=== PATIENT | male | born 1995 | race Hispanic/Latino ===

== ENCOUNTER 2017-05-16 11:40 | Inpatient (IN) | payer OTHER ==
[2017-05-16] MEDS ORDERED: Sodium Chloride 0.9% 1,000 ML IV STA ×3 (12:08→15:30)
--- NOTE | 2017-05-16 12:44 | ED PDOC ---
Syncope/Near Syncope/Dizziness Time Seen by Provider: 05/16/17 11:48 Chief Complaint (Provider): Syncope History Per: Patient History/Exam Limitations: no limitations Onset/Duration Of Symptoms: Hrs Current Symptoms Are (Timing): Still Present Activity At Onset Of Symptoms: Exertional Activity (running) Additional Complaint(s): Warren Khan is a 21 year old male that presents to the ED with a chief complaint of syncope after he ran 12.5 miles of his half marathon. Patient reports that he runs regularly, and that this past week he completed 11 miles without difficulty, but that he typically runs in the evenings, when it is chilly, as opposed to in the humidity of today's weather. Patient states that he lost consciousness, and that the last thing he remembered was seeing his brother running alongside him, and once he came to he was inside the EMS truck. He denies any nausea, vomiting, diarrhea, fever, chills, incontinence, or biting of tongue. Of Note: EMS reports that when they first took patient's blood pressure it was 69/34, but after three bags of IV fluids it is 122/44, and heart rate is around 120 BPM. Past Medical History Reviewed: Historical Data, Nursing Documentation, Vital Signs Vital Signs: Last Vital Signs Temp 97.9 F 05/16/17 11:43 Pulse 112 H 05/16/17 11:43 Resp 18 05/16/17 11:43 BP 104/54 L 05/16/17 11:43 Pulse Ox 97 05/16/17 11:43 - Medical History PMH: No Chronic Diseases - Family History Family History: States: Hypertension - Social History Current smoker - smoking cessation education provided: No Alcohol: Social - Allergies Allergies/Adverse Reactions: Allergies Allergy/AdvReac Type Severity Reaction Status Date / Time No Known Allergies Allergy Verified 05/16/17 12:07 Review of Systems Constitutional: Negative for: Fever, Chills Gastrointestinal: Negative for: Nausea, Vomiting, Diarrhea Genitourinary Male: Negative for: Incontinence Neurological: Positive for: Other (syncope) Physical Exam - Reviewed Nursing Documentation Reviewed: Yes Vital Signs Reviewed: Yes - Physical Exam Appears: Positive for: Non-toxic, No Acute Distress Head Exam: Positive for: ATRAUMATIC, NORMOCEPHALIC Skin: Positive for: Normal Color, Warm Eye Exam: Positive for: Normal appearance, EOMI, PERRL Cardiovascular/Chest: Positive for: Regular Rate, Rhythm (110 BPM). Negative for: Murmur Respiratory: Positive for: Normal Breath Sounds. Negative for: Wheezing Gastrointestinal/Abdominal: Positive for: Normal Exam, Soft. Negative for: Tenderness Extremity: Positive for: Normal ROM. Negative for: Tenderness, Swelling Neurologic/Psych: Positive for: Alert, textbook associate II-XII, Oriented. Negative for: Motor/Sensory Deficits, Aphasia, Facial Droop - Laboratory Results Result Diagrams: 05/16/17 14:21 05/16/17 14:21 - ECG O2 Sat by Pulse Oximetry: 97 (RA) Pulse Ox Interpretation: Normal Medical Decision Making Medical Decision Making: Impression: Syncope s/p physical exertion Plan: * EKG * CMP * CBC * Urine Drug Screen * Urine Dip * NaCl 1000 mLs at 1000 mLs/hr * Reevaluation 15:00 Patient signed out to Dr. Shayne Robert pending bloodwork and reevaluation. Scribe Attestation: Documented by Snehal Day, acting as a scribe for Pauline Robbins MD. Provider Scribe Attestation: All medical record entries made by the Scribe were at my direction and personally dictated by me. I have reviewed the chart and agree that the record accurately reflects my personal performance of the history, physical exam, medical decision making, and the department course for this patient. I have also personally directed, reviewed, and agree with the discharge instructions and disposition. Disposition - Clinical Impression Clinical Impression: Syncope - Patient ED Disposition Is Patient to be Admitted: Transfer of Care - Disposition Disposition Time: 15:00 Condition: IMPROVED Patient Signed Over To: Shayne Robert III
[2017-05-16 14:27] LABS: BASO % 0.1 % (0.0-2.0); HEMATOCRIT 44.3 % (35.0-51.0); LYMPH % 4.5 % (20.0-40.0); MEAN CELL VOLUME 87.9 fl (80.0-94.0); MEAN CORPUSCULAR HEMOGLOBIN 29.8 pg (27.0-31.0); MEAN CORPUSCULAR HGB CONC 33.9 g/dL (33.0-37.0); MEAN PLATELET VOLUME 9.3 fl (7.2-11.7); MONO # 1.7 K/uL (0.0-0.8); NEUT # 18.6 K/uL (1.8-7.0); NEUT % 87.4 % (50.0-75.0); RED CELL DISTRIBUTION WIDTH 13.1 % (11.5-14.5); WHITE BLOOD COUNT 21.3 K/uL (4.8-10.8)
[2017-05-16 14:41] LABS: CALCIUM 9.9 mg/dL (8.4-10.2); POTASSIUM 4.2 MMOL/L (3.6-5.0)
--- NOTE | 2017-05-16 15:07 | ED PDOC ---
- Laboratory Results Result Diagrams: 05/16/17 14:21 05/16/17 14:21 - ECG ECG: Positive for: Interpreted By Me ECG Rhythm: Positive for: ST/T Changes Rate: 86 O2 Sat by Pulse Oximetry: 97 (RA) Pulse Ox Interpretation: Normal - Radiology X-Ray: Interpreted by Me X-Ray Interpretation: No Acute Disease Medical Decision Making Medical Decision Makin:00 Patient signed over to me by Dr. Pauline Robbins MD pending bloodwork and reevaluation. Pt c/o continuing leg pain, denied chest pain or SOB. UDip reveals TR blood lysed, thus CK added on. Trop returned elevated 0.8 CK 392 (d/w lab- reran and confirmed) EKG repeated 1528 reveals evolution of T waves now hyperacute 445p Dr Emerson cardio air and hydronic balancing technician paged, recommended ASA/ lovenox, BBlocker, consult interventional 5pm Dr Poole air and hydronic balancing technician cardio contacted, EKGs transmitted and he stated not a code heart candidate. 530pm Dr Mckeon air and hydronic balancing technician medicine contacted and case discussed. Requested ICU consult. 540pm Dr Epstein contacted intensive care, will monitor in ICU overnight given EKG changes and elevated trop 6pm Dr Epstein in ED, care transferred. All results d/w patient and mother. Scribe Attestation: Documented by Snehal Day, acting as a scribe for Shayne Robert III, DO. Provider Scribe Attestation: All medical record entries made by the Scribe were at my direction and personally dictated by me. I have reviewed the chart and agree that the record accurately reflects my personal performance of the history, physical exam, medical decision making, and the department course for this patient. I have also personally directed, reviewed, and agree with the discharge instructions and disposition. Disposition Counseled Patient/Family Regarding: Studies Performed, Diagnosis, Need For Followup - Clinical Impression Clinical Impression: Syncope, Acute electrocardiogram changes, NSTEMI (non-ST elevated myocardial infarction), Rhabdomyolysis - POA Present On Arrival: None - Disposition Disposition: Admitted as In-Patient Disposition Time: 14:45 Condition: FAIR
[2017-05-16] MEDS: Lactated Ringer's 1,000 ML IV SCH ×2 (16:13→16:19)
[2017-05-16 16:40] LABS: TROPONIN I 0.804 ng/mL (0.00-0.120)
[2017-05-16] MEDS ORDERED: Enoxaparin 80 mg Syringe SC STA (17:30)
--- NOTE | 2017-05-16 18:41 | CP.CCUPN ---
CCU Subjective - Physician Review Events Since Last Encounter (Free Text): 05/16/17 19:12 The patient was Seen/interviewed and examined by me at the bedside during ICU round, Medical records reviewed and Management issues were discussed and formulated with the house staff. Mr. Khan is a 21 Years old Male with no significant PMHx Who presents to the Emergency department with a chief complaint of syncope after he ran about 12 miles of his half marathon. Patient states that he runs regularly, and that this past week he completed 11 miles without difficulty EMS reports that when they first took patient's blood pressure it was 69/34 in the field, and HR in 160s, Pt AAO x3. Patient denies any similar episodes In the ER he intially boarderline hypotensive, and Tachcardiac, but after 3L of IV fluids BP 122/44, and heart rate 80s Labs NL, except Trop 0.84 and hyperacute T waves on EKG Cardiology consult, , recommended ASA/ lovenox, BBlocker interventional consulted also, recommended no intevention Pt received Lovenos and BB. Pt denied chest pain or SOB, only c/o continuing leg pain. Awake, comfortable, NAD CCU Objective - Vital Signs / Intake & Output Vital Signs (Last 4 hours): Vital Signs Temp Pulse Resp BP Pulse Ox 05/16/17 18:18 97.6 F 80 18 122/54 L 100 05/16/17 18:16 86 97 - Physical Exam Head: Positive for: Atraumatic, Normocephalic. Negative for: Tenderness, Contusion, Swelling, Ecchymosis Pupils: Positive for: PERRL. Negative for: Sluggish, Non-Reactive Extroacular Muscles: Positive for: EOMI Conjunctiva: Positive for: Normal. Negative for: Injected, Icteric Ears: Positive for: Normal Mouth: Positive for: Moist Mucous Membranes Pharnyx: Positive for: Normal Nose (External): Positive for: Atraumatic Nose (Internal): Positive for: Normal Inspection Neck: Negative for: Normal Range of Motion, Meningeal Signs, MIDLINE TENDERNESS , Paraspinal Tenderness, JVD, Lymphadenopathy, Bruit, Trachea Midline, Other Respiratory/Chest: Positive for: Clear to Auscultation, Good Air Exchange. Negative for: Respiratory Distress, Accessory Muscle Use, Wheezes, Rhonchi Cardiovascular: Positive for: Regular Rate and Rhythm, Normal S1, S2, Peripheal Pulses Present. Negative for: Murmurs, Irregular Rhythm, Tachycardic, Bradycardic Abdomen: Positive for: Normal Bowel Sounds. Negative for: Tenderness, Distention, Peritoneal Signs, Rebound, Guarding Upper Extremity: Positive for: Normal Inspection, Normal ROM, NORMAL PULSES, Capillary Refill < 2s. Negative for: Cyanosis, Edema, Tenderness, Swelling, Erythema Lower Extremity: Positive for: Normal Inspection, NORMAL PULSES, Capillary Refill < 2 s. Negative for: Edema, CALF TENDERNESS Neurological: Positive for: GCS=15, CN II-XII Intact, Speech Normal, Motor Func Grossly Intact, Normal Sensory Function Psychiatric: Positive for: Alert, Oriented x 3, Normal Insight, Normal Concentration - Medications Active Medications: Active Medications Generic Name Dose Route Start Last Admin Trade Name Freq PRN Reason Stop Dose Admin Lactated Ringer's 1,000 mls @ 1,000 mls/hr 05/16/17 15:15 05/16/17 16:19 Lactated Ringer's IV 1,000 mls/hr .Q1H KATI Administration Dextrose/Sodium Chloride 1,000 mls @ 150 mls/hr 05/16/17 18:00 Dextrose 5%/0.45% Ns 1000 Ml IV 05/17/17 17:51 .Q6H40M KATI Review of Systems - Constitutional Constitutional: UN - Respiratory Respiratory: absent: As Per HPI, Cough, Dyspnea, Hemoptysis, Dyspnea on Exertion , Wheezing, Snoring, Stridor, Pain on Inspiration, Chest Congestion, Excessive Mucous Production, Change in Mucous Color, Pain with Coughing, Other, UNREMARKABLE - Gastrointestinal Gastrointestinal: absent: As Per HPI, Abdominal Pain, Belching, Bloating, Change in Bowel Habits, Change in Stool Character, Coffee Ground Emesis, Constipation, Cramping, Diarrhea, Dyspepsia, Dysphagia, Early Satiety, Excessive Flatus, Fecal Incontinence, Heartburn, Hematemesis, Hematochezia, Loose Stools, Melena, Nausea, Odynophagia, Temesmus, Vomiting, Other, UNREMARKABLE - Musculoskeletal Musculoskeletal: Arthralgias, Muscle Cramps, Muscle Weakness, Myalgias. absent : Abnormal Gait, Atrophy, Back Pain, Joint Swelling, Limited Range of Motion, Radiating Pain into Limb Critical Care Progress Note - Extremities/Vascular Does the Patient have a Central Venous Catheter?: No Does the Patient need a Central Venous Catheter?: No Does the Patient have a Camacho Catheter?: No Does the Patient need a Camacho Catheter?: No Assessment/Plan (1) Acute electrocardiogram changes Current Visit: Yes Status: Acute (2) NSTEMI (non-ST elevated myocardial infarction) Current Visit: Yes Status: Acute (3) Rhabdomyolysis Current Visit: Yes Status: Acute (4) Syncope Current Visit: Yes Status: Acute - Assessment and Plan (Free Text) Assessment: ASSESEMENT AND PLAN Admit to ICU for Cardiac and hemodynamic monitoring. Cardiology consult, recommended ASA/ lovenox, BBlocker Interventional consulted also, recommended no intervention At this time Neuro check Seial EKG, TROP Trend CPK level ECHO Suplemental Oxygen IV Hydration with D5 1/2NS @ 150 ml/hr Monitor urine output, Strict I&O Monitor Renal function Pain control with Tylenol PRN OOB chair, fall precautions, aspiration precaution GI/DVT PPX The need for further cardiac work up will be assessed based on further TROP/ECG/ ECHO and crdiac/slinical progress
[2017-05-16] MEDS: Dextrose 5%/0.45% NS 1,000 ML IV SCH (18:46)
--- NOTE | 2017-05-16 20:04 | CP.PCM.PCO ---
Physician Communication Note - Physician Communication Note Physician Communication Note: Because BP is 108/53mmHg I will hold the Lopressor tonight.
[2017-05-16 20:30] LABS: BLOOD UREA NITROGEN 21 mg/dl (9-20); CALCIUM 9.4 mg/dL (8.4-10.2); CARBON DIOXIDE 23 mmol/L (22-30); CHLORIDE 106 mmol/L (98-107); GFR AFRICAN-AMERICAN > 60; GLUCOSE,RANDOM 109 mg/dL (75-110); POTASSIUM 4.1 MMOL/L (3.6-5.0); SODIUM 139 mmol/l (132-148)
[2017-05-17] MEDS: Dextrose 5%/0.45% NS 1,000 ML IV SCH ×2 (01:13→08:33)
[2017-05-17 05:18] LABS: BASO # 0.1 K/uL (0.0-0.2); BASO % 0.5 % (0.0-2.0); EOS # 0.1 K/uL (0.0-0.7); EOS % 1.1 % (0.0-4.0); HEMATOCRIT 39.2 % (35.0-51.0); LYMPH # 3.8 K/uL (1.0-4.3); LYMPH % 35.4 % (20.0-40.0); MEAN CELL VOLUME 88.3 fl (80.0-94.0); MEAN CORPUSCULAR HEMOGLOBIN 29.8 pg (27.0-31.0); MEAN CORPUSCULAR HGB CONC 33.7 g/dL (33.0-37.0); MEAN PLATELET VOLUME 9.2 fl (7.2-11.7); MONO % 9.7 % (0.0-10.0); NEUT # 5.7 K/uL (1.8-7.0); NEUT % 53.3 % (50.0-75.0); NRBC % 0.1 % (0.0-0.0); RED CELL DISTRIBUTION WIDTH 13.2 % (11.5-14.5); WHITE BLOOD COUNT 10.6 K/uL (4.8-10.8)
[2017-05-17 05:28] LABS: ALB/GLOB RATIO 1.4 (1.0-2.1); ALKALINE PHOSPHATASE 32 U/L (38-126); ALT/SGPT 35 U/L (21-72); AST/SGOT 57 U/L (17-59); BILIRUBIN,TOTAL 1.4 mg/dl (0.2-1.3); BLOOD UREA NITROGEN 22 mg/dl (9-20); CARBON DIOXIDE 24 mmol/L (22-30); CHLORIDE 106 mmol/L (98-107); GFR AFRICAN-AMERICAN > 60; GLUCOSE,RANDOM 93 mg/dL (75-110); POTASSIUM 3.5 MMOL/L (3.6-5.0); SODIUM 138 mmol/l (132-148)
--- NOTE | 2017-05-17 07:26 | CP.CCUPN ---
CCU Subjective - Physician Review Events Since Last Encounter (Free Text): 05/17/17 The patient was Seen/interviewed and examined by me at the bedside during ICU round, Medical records reviewed and Management issues were discussed and formulated with the house staff. This morning he feels well and is hemodynamically stable, denies any chest pain or SOB, No Fever/chills or leg pain. Awake, comfortable, NAD Afebrile, BP NL, HR sinus heladio Labs reviewed, hyperacute T waves on EKG Trop trending down 1.22-->0.83-->0.56 ECHO done, results essentially negative Head CT scan ordered for syncope work up but family declined We reviewed the rationale, risks, and alternatives to treatment with the patient and his family, they was given the opportunity to ask many questions which were answered to his satisfaction, they all agrees with our recommendations that cardiac work up is indicated, they reluctant to go for Cardiac Cath to further evaluate due to the Abnormal EKG and elevated Trop on admission. Mother discussed with primary cardiology at [facility] Dr Jc Benitez [phone], he advised to have either Cardiac MRI or Coronory CTA both modality are unavoidable, As per family reqest patient will be transferred to [facility], the transfer center was contacted at [phone], he was accepted for transfer , will be admitted there under Dr Benitez, Pt's current status and treatment plans is discussed with pt / pt's family CCU Objective - Vital Signs / Intake & Output Vital Signs (Last 4 hours): Vital Signs Temp Pulse Resp BP Pulse Ox 05/17/17 06:00 46 L 11 L 111/68 99 05/17/17 04:00 98.5 F 59 L 13 113/66 100 Intake and Output (Last 8hrs): Intake & Output 05/16/17 05/17/17 05/17/17 22:59 06:59 14:59 Intake Total 1770 Output Total 1400 Balance 370 Intake: IV 1650 Oral 120 Output: Urine 1400 Urine, Voided 1400 Other: # Voids Urine, Voided 3 - Physical Exam Head: Positive for: Atraumatic, Normocephalic. Negative for: Tenderness, Contusion, Swelling, Ecchymosis Pupils: Positive for: PERRL. Negative for: Sluggish, Non-Reactive Extroacular Muscles: Positive for: EOMI Conjunctiva: Positive for: Normal. Negative for: Injected, Icteric Ears: Positive for: Normal Mouth: Positive for: Moist Mucous Membranes Pharnyx: Positive for: Normal Nose (External): Positive for: Atraumatic Nose (Internal): Positive for: Normal Inspection Neck: Negative for: Normal Range of Motion, Meningeal Signs, MIDLINE TENDERNESS , Paraspinal Tenderness, JVD, Lymphadenopathy, Bruit, Trachea Midline, Other Respiratory/Chest: Positive for: Clear to Auscultation, Good Air Exchange. Negative for: Respiratory Distress, Accessory Muscle Use, Wheezes, Rhonchi Cardiovascular: Positive for: Regular Rate and Rhythm, Normal S1, S2, Peripheal Pulses Present. Negative for: Murmurs, Irregular Rhythm, Tachycardic, Bradycardic Abdomen: Positive for: Normal Bowel Sounds. Negative for: Tenderness, Distention, Peritoneal Signs, Rebound, Guarding Upper Extremity: Positive for: Normal Inspection, Normal ROM, NORMAL PULSES, Capillary Refill < 2s. Negative for: Cyanosis, Edema, Tenderness, Swelling, Erythema Lower Extremity: Positive for: Normal Inspection, NORMAL PULSES, Capillary Refill < 2 s. Negative for: Edema, CALF TENDERNESS Neurological: Positive for: GCS=15, CN II-XII Intact, Speech Normal, Motor Func Grossly Intact, Normal Sensory Function Psychiatric: Positive for: Alert, Oriented x 3, Normal Insight, Normal Concentration - Medications Active Medications: Active Medications Generic Name Dose Route Start Last Admin Trade Name Freq PRN Reason Stop Dose Admin Aspirin 81 mg 05/17/17 09:00 Aspirin Chewable PO DAILY COUNTS INCLUDE 234 BEDS AT THE [facility] Atorvastatin Calcium 20 mg 05/17/17 09:00 Lipitor PO DAILY KATI Lactated Ringer's 1,000 mls @ 1,000 mls/hr 05/16/17 15:15 05/16/17 16:19 Lactated Ringer's IV 1,000 mls/hr .Q1H KATI Administration Dextrose/Sodium Chloride 1,000 mls @ 150 mls/hr 05/16/17 18:00 05/17/17 01:13 Dextrose 5%/0.45% Ns 1000 Ml IV 05/17/17 17:51 150 mls/hr .Q6H40M KATI Administration Metoprolol Tartrate 12.5 mg 05/17/17 21:00 Lopressor PO Q12 KATI - Patient Studies Lab Studies: Lab Studies 05/17/17 05/17/17 05/16/17 Range/Units 05:15 05:15 20:13 WBC 10.6 D (4.8-10.8) K/uL RBC 4.44 (4.40-5.90) Mil/uL Hgb 13.2 (12.0-18.0) g/dL Hct 39.2 (35.0-51.0) % MCV 88.3 (80.0-94.0) fl MCH 29.8 (27.0-31.0) pg MCHC 33.7 (33.0-37.0) g/dL RDW 13.2 (11.5-14.5) % Plt Count 148 (130-400) K/uL MPV 9.2 (7.2-11.7) fl Neut % (Auto) 53.3 (50.0-75.0) % Lymph % (Auto) 35.4 (20.0-40.0) % Bond % (Auto) 9.7 (0.0-10.0) % Eos % (Auto) 1.1 (0.0-4.0) % Baso % (Auto) 0.5 (0.0-2.0) % Neut # 5.7 (1.8-7.0) K/uL Lymph # 3.8 (1.0-4.3) K/uL Bond # 1.0 H (0.0-0.8) K/uL Eos # 0.1 (0.0-0.7) K/uL Baso # 0.1 (0.0-0.2) K/uL Sodium 138 139 (132-148) mmol/l Potassium 3.5 L 4.1 (3.6-5.0) MMOL/L Chloride 106 106 (98-107) mmol/L Carbon Dioxide 24 23 (22-30) mmol/L Anion Gap 12 15 (10-20) BUN 22 H 21 H (9-20) mg/dl Creatinine 1.1 1.4 (0.8-1.5) mg/dL Est GFR ( Amer) > 60 > 60 Est GFR (Non-Af Amer) > 60 > 60 Random Glucose 93 109 (75-110) mg/dL Calcium 9.0 9.4 (8.4-10.2) mg/dL Total Bilirubin 1.4 H (0.2-1.3) mg/dl AST 57 (17-59) U/L ALT 35 (21-72) U/L Alkaline Phosphatase 32 L (38-126) U/L Total Creatine Kinase 791 H (55-170) U/L Troponin I 0.8360 H* (0.00-0.120) ng/mL Total Protein 6.0 L (6.3-8.2) G/DL Albumin 3.6 (3.5-5.0) g/dL Globulin 2.5 (2.2-3.9) gm/dL Albumin/Globulin Ratio 1.4 (1.0-2.1) 05/16/17 05/16/17 Range/Units 20:13 19:45 WBC (4.8-10.8) K/uL RBC (4.40-5.90) Mil/uL Hgb (12.0-18.0) g/dL Hct (35.0-51.0) % MCV (80.0-94.0) fl MCH (27.0-31.0) pg MCHC (33.0-37.0) g/dL RDW (11.5-14.5) % Plt Count (130-400) K/uL MPV (7.2-11.7) fl Neut % (Auto) (50.0-75.0) % Lymph % (Auto) (20.0-40.0) % Bond % (Auto) (0.0-10.0) % Eos % (Auto) (0.0-4.0) % Baso % (Auto) (0.0-2.0) % Neut # (1.8-7.0) K/uL Lymph # (1.0-4.3) K/uL Bond # (0.0-0.8) K/uL Eos # (0.0-0.7) K/uL Baso # (0.0-0.2) K/uL Sodium (132-148) mmol/l Potassium (3.6-5.0) MMOL/L Chloride (98-107) mmol/L Carbon Dioxide (22-30) mmol/L Anion Gap (10-20) BUN (9-20) mg/dl Creatinine (0.8-1.5) mg/dL Est GFR ( Amer) Est GFR (Non-Af Amer) Random Glucose (75-110) mg/dL Calcium (8.4-10.2) mg/dL Total Bilirubin (0.2-1.3) mg/dl AST (17-59) U/L ALT (21-72) U/L Alkaline Phosphatase (38-126) U/L Total Creatine Kinase 628 H (55-170) U/L Troponin I 1.2200 H* (0.00-0.120) ng/mL Total Protein (6.3-8.2) G/DL Albumin (3.5-5.0) g/dL Globulin (2.2-3.9) gm/dL Albumin/Globulin Ratio (1.0-2.1) Laboratory Results - last 24 hr 05/16/17 05/16/17 05/16/17 19:45 20:13 20:13 WBC RBC Hgb Hct MCV MCH MCHC RDW Plt Count MPV Neut % (Auto) Lymph % (Auto) Bond % (Auto) Eos % (Auto) Baso % (Auto) Neut # Lymph # Bond # Eos # Baso # Sodium 139 Potassium 4.1 Chloride 106 Carbon Dioxide 23 Anion Gap 15 BUN 21 H Creatinine 1.4 Est GFR ( Amer) > 60 Est GFR (Non-Af Amer) > 60 Random Glucose 109 Calcium 9.4 Total Bilirubin AST ALT Alkaline Phosphatase Total Creatine Kinase 628 H Troponin I 1.2200 H* Total Protein Albumin Globulin Albumin/Globulin Ratio 05/17/17 05/17/17 05:15 05:15 WBC 10.6 D RBC 4.44 Hgb 13.2 Hct 39.2 MCV 88.3 MCH 29.8 MCHC 33.7 RDW 13.2 Plt Count 148 MPV 9.2 Neut % (Auto) 53.3 Lymph % (Auto) 35.4 Bond % (Auto) 9.7 Eos % (Auto) 1.1 Baso % (Auto) 0.5 Neut # 5.7 Lymph # 3.8 Bond # 1.0 H Eos # 0.1 Baso # 0.1 Sodium 138 Potassium 3.5 L Chloride 106 Carbon Dioxide 24 Anion Gap 12 BUN 22 H Creatinine 1.1 Est GFR ( Amer) > 60 Est GFR (Non-Af Amer) > 60 Random Glucose 93 Calcium 9.0 Total Bilirubin 1.4 H AST 57 ALT 35 Alkaline Phosphatase 32 L Total Creatine Kinase 791 H Troponin I 0.8360 H* Total Protein 6.0 L Albumin 3.6 Globulin 2.5 Albumin/Globulin Ratio 1.4 Critical Care Progress Note - Nutrition Nutrition: Nutrition Category Date Time Status Heart Healthy Diet [DIET] Diets 05/16/17 Breakfast Active Assessment/Plan (1) Acute electrocardiogram changes Current Visit: Yes Status: Acute Comment: Seial EKG: No acute changes TROP: trending down ECHO: NL (2) NSTEMI (non-ST elevated myocardial infarction) Current Visit: Yes Status: Acute Comment: Continue medical mangements Continue ASA, Lopressor and Atorvastatin As per family reqest patient is for transferred to [facility] (3) Rhabdomyolysis Current Visit: Yes Status: Acute Comment: Trend CPK level IV Hydrations (4) Syncope Current Visit: Yes Status: Acute Comment: Head CT scan ordered for syncope work up but family declined Cardiac work up in progress
--- NOTE | 2017-05-17 07:42 | CARD ---
APPROVED REPORT EKG Measurement Heart [id number] [place] [id number] <Conclusion> Normal sinus rhythm Incomplete right bundle branch block Borderline ECG
--- NOTE | 2017-05-17 08:04 | CARD ---
APPROVED REPORT EKG Measurement Heart [id number] <Conclusion> Normal sinus rhythm Possible Left atrial enlargement RSR' or QR pattern in V1 suggests right ventricular conduction delay Left ventricular hypertrophy Abnormal ECG
[2017-05-17] MEDS ORDERED: Dextrose 5%/0.45% NS 1,000 ML IV SCH (09:07)
[2017-05-17] MEDS ORDERED: Potassium Chloride 20 mEq ER Tab PO ONE (10:26)
[2017-05-17] MEDS ORDERED: Enoxaparin 80 mg Syringe SC SCH (10:30)
--- NOTE | 2017-05-17 11:08 | HP ---
HISTORY OF PRESENT ILLNESS: Mr. Khan is a 21-year-old male who is admitted via the emergency room following near syncopal episodes after he was running a marathon, a run about 12 miles and felt faint and nearly passed out. He was brought to the hospital by EMS. Blood pressure 69/34 and on arrival heart rate was 160 and had an abnormal EKG, was therefore admitted to the intensive care unit for hypotension and abnormal EKG to rule out acute coronary syndrome. He received about 3 L of IV fluids and his heart rate dropped to 80 with a blood pressure of 122/44. His laboratory data was also remarkable for elevated troponin and CPK. PAST MEDICAL HISTORY: He has an unremarkable past medical history. FAMILY HISTORY: Remarkable for father who had a similar episode recently while riding a cross-country bike and had to be worked for cardiac disease and workup unremarkable. SOCIAL HISTORY: Socially, he does not smoke or drink. 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 He does not use drugs and does not use alcohol. REVIEW OF SYSTEMS: Essentially unremarkable, except for the patient indicating that he has abnormal heart rate of about 50. PHYSICAL EXAMINATION: GENERAL: The patient is alert and oriented and appears to be comfortable this morning. Denies any chest pain, palpitation, or shortness of breath. VITAL SIGNS: Blood pressure 111/68 with a pulse of 46, respiratory rate 18 per minute, and he is afebrile. O2 saturation is 99% on room air. SKIN: Shows fair turgor. HEENT: Pupils are equal and reactive to light and accommodation. Mouth shows fair hygiene. JVP flat. HEART: Regular rhythm. No murmurs or gallops. No chest wall tenderness. LUNGS: Clear. ABDOMEN: Soft, nontender, no organomegaly. EXTREMITIES: Shows no edema or cyanosis. CENTRAL NERVOUS SYSTEM: Grossly intact. RECTAL: Unremarkable. GENITALIA: Unremarkable. LABORATORY DATA: Remarkable for troponin of 0.8360. Sodium 138, potassium 3.5, BUN 22, creatinine 1.1, AST 57, and ALT 35. CPK 791 from 392. Chest x-ray official report pending. EKG was remarkable for normal sinus rhythm with complete right bundle branch block on admission. From this EKG shows sinus bradycardia, RSR or QR pattern in the V1 suggestive of right ventricular conduction delay. IMPRESSION: Near syncopal episode, probably secondary to severe dehydration following a marathon, elevated troponin, probably secondary to rhabdomyolysis, one has to rule out acute coronary syndrome in view of abnormal electrocardiogram, which could also be due to acute rhabdomyolysis, and bradycardia. As per the patient and mom, this is basic rhythm. PLAN: IV hydration. Cardiology evaluation. We will hold on antihypertensive medications for now. Monitor the patient in the ICU for another 24 hours with IV hydration. Discharge in the a.m. if cleared by Cardiology. Sacha Melendez MD
--- NOTE | 2017-05-17 11:27 | CARD ---
APPROVED REPORT EXAM: Two-dimensional and M-mode echocardiogram with Doppler and color Doppler. Other Information Quality : GoodRhythm : NSR INDICATION Acute MO 2D DIMENSIONS IVSd1.08 (0.7-1.1cm)LVDd5.07 (3.9-5.9cm) LVOT Diameter2.27 (1.8-2.4cm)PWd1.08 (0.7-1.1cm) IVSs1.54 (0.8-1.2cm)LVDs3.38 (2.5-4.0cm) FS (%) 33.3 %PWs1.43 (0.8-1.2cm) M-Mode DIMENSIONS Left Atrium (MM)3.66 (2.5-4.0cm)IVSd1.17 (0.7-1.1cm) Aortic Root2.70 (2.2-3.7cm)LVDd5.26 (4.0-5.6cm) Aortic Cusp Exc.2.41 (1.5-2.0cm)PWd0.91 (0.7-1.1cm) IVSs1.46 cmFS (%) 37 % LVDs3.30 (2.0-3.8cm)PWs1.12 cm Mitral Valve MV E Zunzaxjr62.6cm/sMV DECEL [id number] A Zmmgugop56.8cm/s MV [id number]/A ratio2.7MVA (PHT)4.21cm2 TDI Lateral E' Peak V19.07cm/sMedial E' Peak V12.63cm/sE/Lateral E'5.0 E/Medial E'7.6 Pulmonary Valve PV Peak Yuhjguxw34.6cm/s LEFT VENTRICLE The left ventricle is normal size. There is normal left ventricular wall thickness. The left ventricular function is normal. The left ventricular ejection fraction is within the normal range. The Ejection Fraction is 65-70%. There is normal LV segmental wall motion. The left ventricular diastolic function is normal. No left ventricle thrombus noted on this study. There is no mass noted in the left ventricle. RIGHT VENTRICLE The right ventricle is normal size. There is normal right ventricular wall thickness. The right ventricular systolic function is normal. ATRIA The left atrium size is normal. The right atrium size is normal. The interatrial septum is intact with no evidence for an atrial septal defect. AORTIC VALVE The aortic valve is normal in structure and function. No aortic regurgitation is present. There is no aortic valvular stenosis. There is no aortic valvular vegetation. MITRAL VALVE The mitral valve is normal in structure and function. There is no evidence of mitral valve prolapse. There is no mitral valve stenosis. There is no mitral valve regurgitation noted. TRICUSPID VALVE The tricuspid valve is normal in structure and function. There is no tricuspid valve regurgitation noted. There is no tricuspid valve prolapse or vegetation. There is no tricuspid valve stenosis. PULMONIC VALVE The pulmonary valve is normal in structure and function. There is no pulmonic valvular regurgitation. There is no pulmonic valvular stenosis. GREAT VESSELS The aortic root is normal in size. The IVC is normal in size and collapses >50% with inspiration. PERICARDIAL EFFUSION The pericardium appears normal. There is no pleural effusion. <Conclusion> The left ventricle is normal size. The left ventricular function is normal. The left ventricular ejection fraction is within the normal range. The Ejection Fraction is 65-70%.
--- NOTE | 2017-05-17 11:34 | RAD ---
HISTORY: Syncope COMPARISON: No prior. TECHNIQUE: Chest PA and lateral FINDINGS: LUNGS: No active pulmonary disease. PLEURA: No significant pleural effusion identified. No pneumothorax apparent. CARDIOVASCULAR: Normal. OSSEOUS STRUCTURES: No significant abnormalities. VISUALIZED UPPER ABDOMEN: Normal. OTHER FINDINGS: None. IMPRESSION: No active disease.
--- NOTE | 2017-05-17 11:51 | CARD ---
APPROVED REPORT EKG Measurement Heart [id number] MD [id number] <Conclusion> Sinus bradycardia RSR' or QR pattern in V1 suggests right ventricular conduction delay Borderline ECG
[2017-05-17 13:19] LABS: BLOOD UREA NITROGEN 16 mg/dl (9-20); CALCIUM 9.4 mg/dL (8.4-10.2); CARBON DIOXIDE 24 mmol/L (22-30); CHLORIDE 106 mmol/L (98-107); CHOLESTEROL 112 mg/dL (0-199); GFR AFRICAN-AMERICAN > 60; GLUCOSE,RANDOM 119 mg/dL (75-110); POTASSIUM 4.1 MMOL/L (3.6-5.0); SODIUM 140 mmol/l (132-148)
[2017-05-17 13:35] LABS: PARTIAL THROMBOPLASTIN TIME 39.1 Seconds (25.6-37.1)
[2017-05-17 14:33] VITALS: TEMP 98.4
[2017-05-17 19:17] VITALS: BP 127/72; PULSE 63; RESP 12; O2SAT 100
--- NOTE | 2017-05-17 21:24 | CON ---
CARDIOLOGY CONSULT REASON FOR CONSULTATION: Syncope and elevated troponin. HISTORY OF PRESENT ILLNESS: The patient is 21 years old male who was running the [place] half marathon yesterday and at the 11th mile, he collapsed, lost consciousness and was brought to the EMS to [facility]. As per his moms request who requested neither [facility] or [facility], but [place] because the patient lives in [place]. The patient does not recall experiencing palpitation or chest pain, but he felt his hands numb prior to his collapse. The patient sustained no injury secondary to his fall. The patient only started to recall when was in the ambulance. The patient did experience bilateral leg aches, but no chest pain and no headache. The patient did run 11 miles few days earlier, but in a much better weather and at a later time of the day in preparation to his half marathon. The patient never ran half marathon before. The patient has no childhood problem and exercise and has no prior significant past medical history. SOCIAL HISTORY: The patient is nonsmoker. He works in sales. CURRENT MEDICATIONS: Aspirin 81 mg once a day, D5 half normal saline at 100 mL per hour, Lopressor 12.5 mg once a day, Lipitor 20 mg once a day, and Lovenox 75 mg subcutaneous twice a day. REVIEW OF SYSTEMS: No nausea or vomiting and no chest pain or shoulder aches at this time and no headache, blurry vision. PHYSICAL EXAMINATION: GENERAL: The patient is young male who does not appear to be in acute distress. VITAL SIGNS: Blood pressure 134/40, heart rate 52, temperature 98.2, respirations 14. HEENT: Normocephalic. CHEST: Clear. HEART: S1 and S2 regular. ABDOMEN: Soft. EXTREMITIES: No edema. LABORATORY DATA: Urine drug screen is negative. SMA-7: Sodium 138, potassium 3.5, chloride 106, CO2 of 24, glucose 93, BUN 22, creatinine 1.1. Hemoglobin and hematocrit 13.2 and 39.2, white count 10.4, platelet count 148,000. Troponins were 0.8, 1.2, and 0.83 respectively. Creatinine on admission was 1.8. Echocardiograph study was reviewed that revealed normal left ventricular size and wall motion; however, significant smoke was noted in the left ventricle, smoke is . ASSESSMENT: 1. Syncopal episode, rule out heat exhaustion and dehydration. 2. Rule out transient ischemic attack. 3. Borderline troponin elevation, rule out nontransmural myocardial injury. RECOMMENDATIONS: Continue on current IV hydration, continue aspirin, subcutaneous Lovenox, low-dose beta-blockers. I did request head CT scan without contrast. I did recommend cardiac catheterization if head CT scan is negative; however, the patient's mother adamantly refused the idea and the patient approved of this refusal. In the meantime, I will obtain stat PT and PTT as the patient will be maintained on anticoagulation for now. Binh Bucio MD
== END 2017-05-17 18:45 | disposition short-term general hospital (02) | DRG 281 ==
LOC: H.ER 11:40 → H.ERHOLD 17:29 → H.ICU/CCU 19:10
PROVIDERS: ADMIT Internal Medicine Pulmonary Disease; ATTEND Internal Medicine Pulmonary Disease
DX: I21.4 Non-ST elevation (NSTEMI) myocardial infarction (principal); M62.82 Rhabdomyolysis; I95.9 Hypotension, unspecified; E86.0 Dehydration; I10 Essential (primary) hypertension; M79.605 Pain in left leg; M79.604 Pain in right leg; R55 Syncope and collapse